=== PATIENT | female | born 1945 | race Asian ===

== ENCOUNTER 2020-12-07 13:53 | Emergency (ER) | payer OTHER ==
[~2020-12-07] VITALS: Ht 154.9 cm; Wt 77.0 kg
[2020-12-07] MEDS ORDERED: ASPIRIN/ACETAMINOPHEN/CAFFEINE 250/250/65MG TABLET PO ONE (17:45)
[2020-12-07] MEDS ORDERED: T3 PO (18:16)
[2020-12-07 18:45] VITALS: BP 148/87
== END 2020-12-07 18:46 | disposition home or self-care (01) ==
LOC: ER 13:53
DX: S52.591A Other fractures of lower end of right radius, initial encounter for closed fracture (principal); S52.614A Nondisplaced fracture of right ulna styloid process, initial encounter for closed fracture; W01.0XXA Fall on same level from slipping, tripping and stumbling without subsequent striking against object, initial encounter; Y93.89 Activity, other specified; Y92.89 Other specified places as the place of occurrence of the external cause; R03.0 Elevated blood-pressure reading, without diagnosis of hypertension
CPT/HCPCS: 29125; 73110; 73130; 99284